=== PATIENT | male | born 1945 | race Caucasian/White ===

== ENCOUNTER 2016-12-19 16:37 | Inpatient (IN) | payer MEDICARE, MEDICAID ==
[~2016-12-19] VITALS: Ht 170.2 cm; Wt 73.1 kg
[2016-12-19 19:55] VITALS: BP 121/73
[2016-12-19] MEDS ORDERED: ZOLPIDEM TARTRATE 10 MG TABLET PO PRN (20:00)
[2016-12-19] MEDS ORDERED: HALOPERIDOL 5 MG TABLET PO PRN (20:00)
[2016-12-19] MEDS ORDERED: LORazepam 2 MG TABLET PO PRN (20:00)
[2016-12-19] MEDS ORDERED: ESCI10TA PO (20:01)
[2016-12-19] MEDS ORDERED: DONE10TA PO (20:03)
[2016-12-19] MEDS ORDERED: MEMA10TA11 PO (20:03)
[2016-12-19] MEDS ORDERED: MIRT15 PO (20:05)
[2016-12-19] MEDS ORDERED: TAMS0.4C32 PO ×2 (20:06→20:20)
[2016-12-19] MEDS ORDERED: ATOR20TA86 PO (20:08)
[2016-12-19] MEDS ORDERED: AMLO-512 PO (20:11)
[2016-12-19] MEDS ORDERED: HYDR25TA PO (20:14)
[2016-12-19] MEDS ORDERED: ASPI81TA2 PO (20:15)
[2016-12-19] MEDS ORDERED: GLIM4 PO (20:18)
[2016-12-19] MEDS ORDERED: METF500T4 PO (20:19)
[2016-12-19] MEDS: MEMANTINE HCL 10 MG TABLET PO SCH (20:50)
[2016-12-19] MEDS ORDERED: PNEUMOCOCCAL VACCINE POLYVALENT 0.5 ML VIAL [PPSV23] IM ONE (21:30)
[2016-12-19 21:50] VITALS: BP 125/69
[2016-12-19] MEDS: MIRTAZAPINE 15 MG TABLET PO SCH (22:39)
[2016-12-19 23:07] LABS: GLUCOSE COMMENT 1 Repeated; GLUCOSE,POINT OF CARE 60 MG/DL (70-110)
[2016-12-19 23:07] LABS: GLUCOSE COMMENT 1 Doctor Notified; GLUCOSE,POINT OF CARE 80 MG/DL (70-110)
[2016-12-19 23:07] LABS: GLUCOSE COMMENT 1 Juice/Food/D50 Given; GLUCOSE,POINT OF CARE 63 MG/DL (70-110)
[2016-12-19] MEDS ORDERED: GLUCAGON,HUMAN RECOMBINANT 1 MG VIAL IM PRN (23:30)
[2016-12-20 00:03] VITALS: BP 123/67
[2016-12-20 07:09] LABS: GLUCOSE,POINT OF CARE 132 MG/DL (70-110)
[2016-12-20] MEDS: GLIMEPIRIDE 4 MG TABLET PO SCH ×2 (07:37→16:52)
[2016-12-20 08:05] LABS: BASOPHILS % (AUTO) 0.7 % (0.0-2.0); EOSINOPHILS % (AUTO) 6.4 % (1.0-6.0); HEMATOCRIT 35.2 % (41-53); HEMOGLOBIN 11.6 g/dL (13.5-17.5); LYMPHOCYTES # (AUTO) 1.9 K/uL (1.0-4.8); LYMPHOCYTES % (AUTO) 25.2 % (22.0-44.0); MEAN CORPUSCULAR HEMOGLOBIN 30.5 pg (26.0-34.0); MEAN CORPUSCULAR HGB CONC 32.8 G/dL (31.0-37.0); MEAN CORPUSCULAR VOLUME 93 fL (80-100); MONOCYTES # (AUTO) 0.8 K/uL (0.1-1.0); MONOCYTES % (AUTO) 10.9 % (2.0-9.0); NEUTROPHILS # (AUTO) 4.3 K/uL (1.8-7.7); NEUTROPHILS % (AUTO) 56.8 % (40.0-70.0); PLATELET COUNT (AUTO) 261 K/uL (150-450); RED BLOOD CELL COUNT(AUTO) 3.78 MIL/uL (4.50-5.90); RED CELL DISTRIBUTION WIDTH 14.7 % (11.5-14.5); WHITE BLOOD COUNT (AUTO) 7.6 K/uL (4.5-11.0)
[2016-12-20 08:10] VITALS: BP 138/60
[2016-12-20] MEDS: HYDROCHLOROTHIAZIDE 25 MG TABLET PO SCH (08:21)
[2016-12-20] MEDS: MEMANTINE HCL 10 MG TABLET PO SCH ×2 (08:21→16:53)
[2016-12-20] MEDS: ESCITALOPRAM OXALATE 10 MG TABLET PO SCH (08:21)
[2016-12-20] MEDS: AmLODIPine BESYLATE 10 MG TABLET PO SCH (08:21)
[2016-12-20] MEDS: DONEPEZIL HCL 10 MG TABLET PO SCH (08:21)
[2016-12-20] MEDS: ASPIRIN 81 MG CHEWABLE TABLET PO SCH (08:26)
[2016-12-20 08:56] LABS: ALANINE AMINOTRANSFERASE 20 U/L (12-78); ALBUMIN 3.1 g/dL (3.4-5.0); ANION GAP 8 mmol/L (8-16); ASPARTATE AMINOTRANSFERASE 12 U/L (15-37); BILIRUBIN,TOTAL 0.4 mg/dL (0.1-1.0); CALCIUM, TOTAL 8.8 mg/dL (8.8-10.5); CARBON DIOXIDE 29 mmol/L (22-29); CHLORIDE 105 mmol/L (98-107); CHOL/HDL RATIO 2.8 (4.2-7.3); CREATININE 0.88 mg/dL (0.60-1.30); GLOMERULAR FILTR. RATE CALC > 60 mL/min (>60); POTASSIUM 4.5 mmol/L (3.5-5.1); SODIUM SERUM 142 mmol/L (136-145); THYROID STIMULATING HORMONE 3.07 uIU/mL (0.36-3.74); TOTAL PROTEIN, SERUM 6.6 g/dL (6.4-8.2); UREA NITROGEN, BLOOD 15 mg/dL (7-18)
[2016-12-20 11:43] LABS: GLUCOSE COMMENT 1 Received Meds; GLUCOSE,POINT OF CARE 179 MG/DL (70-110)
[2016-12-20 16:16] VITALS: BP 117/67
[2016-12-20 16:22] LABS: GLUCOSE,POINT OF CARE 178 MG/DL (70-110)
[2016-12-20] MEDS ORDERED: DEXTROSE 50%-WATER 25 GM/50 ML SYRINGE IVP PRN (17:30)
[2016-12-20] MEDS ORDERED: INSULIN REGULAR, HUMAN 100 UNITS/ML SQ PRN (17:30)
[2016-12-20] MEDS: INSULIN ASPART 100 UNITS/ML SQ PRN ×2 (17:51→20:43)
[2016-12-20 20:12] LABS: GLUCOSE COMMENT 1 Received Meds; GLUCOSE,POINT OF CARE 189 MG/DL (70-110)
[2016-12-20] MEDS: MIRTAZAPINE 15 MG TABLET PO SCH (20:42)
[2016-12-20] MEDS: TAMSULOSIN HCL 0.4 MG CAPSULE PO SCH (20:42)
[2016-12-20] MEDS: ATORVASTATIN CALCIUM 20 MG TABLET PO SCH (20:42)
[2016-12-20 22:20] VITALS: BP 143/79
[2016-12-20] MEDS ORDERED: DEXTROSE 50%-WATER 25 GM/50 ML SYG IVP PRN (22:30)
[2016-12-21 05:46] LABS: GLUCOSE,POINT OF CARE 115 MG/DL (70-110)
[2016-12-21] MEDS: FERROUS SULFATE 325 MG EC TABLET PO SCH ×3 (07:09→16:30)
[2016-12-21] MEDS: GLIMEPIRIDE 4 MG TABLET PO SCH ×2 (07:11→16:30)
[2016-12-21] MEDS: AmLODIPine BESYLATE 10 MG TABLET PO SCH (08:36)
[2016-12-21] MEDS: MEMANTINE HCL 10 MG TABLET PO SCH ×2 (08:37→16:28)
[2016-12-21] MEDS: ASPIRIN 81 MG CHEWABLE TABLET PO SCH (08:37)
[2016-12-21] MEDS: QUEtiapine FUMARATE 25 MG TABLET PO SCH ×2 (08:37→16:28)
[2016-12-21] MEDS: FOLIC ACID 1 MG TABLET PO SCH (08:37)
[2016-12-21] MEDS: DONEPEZIL HCL 10 MG TABLET PO SCH (08:38)
[2016-12-21] MEDS: HYDROCHLOROTHIAZIDE 25 MG TABLET PO SCH (08:38)
[2016-12-21] MEDS: ESCITALOPRAM OXALATE 10 MG TABLET PO SCH (08:39)
[2016-12-21 10:40] VITALS: BP 136/84
[2016-12-21] MEDS: INSULIN ASPART 100 UNITS/ML SQ PRN ×2 (11:07→20:51)
[2016-12-21 11:18] LABS: GLUCOSE,POINT OF CARE 156 MG/DL (70-110)
[2016-12-21 17:00] VITALS: BP 105/68
[2016-12-21 17:12] LABS: GLUCOSE,POINT OF CARE 135 MG/DL (70-110)
[2016-12-21] MEDS: MIRTAZAPINE 15 MG TABLET PO SCH (20:29)
[2016-12-21] MEDS: TAMSULOSIN HCL 0.4 MG CAPSULE PO SCH (20:29)
[2016-12-21] MEDS: ATORVASTATIN CALCIUM 20 MG TABLET PO SCH (20:29)
[2016-12-22 05:45] LABS: GLUCOSE,POINT OF CARE 132 MG/DL (70-110)
[2016-12-22 06:14] VITALS: BP 146/90
[2016-12-22] MEDS: FERROUS SULFATE 325 MG EC TABLET PO SCH ×3 (07:15→16:06)
[2016-12-22] MEDS: GLIMEPIRIDE 4 MG TABLET PO SCH ×2 (07:15→16:06)
[2016-12-22 07:38] LABS: GLUCOSE,POINT OF CARE 191 MG/DL (70-110)
[2016-12-22] MEDS: MEMANTINE HCL 10 MG TABLET PO SCH ×2 (08:59→16:06)
[2016-12-22] MEDS: ASPIRIN 81 MG CHEWABLE TABLET PO SCH (08:59)
[2016-12-22] MEDS: QUEtiapine FUMARATE 25 MG TABLET PO SCH ×2 (08:59→16:06)
[2016-12-22] MEDS: BACITRACIN 28.4 GM OINTMENT TP SCH ×2 (08:59→16:06)
[2016-12-22] MEDS: ESCITALOPRAM OXALATE 10 MG TABLET PO SCH (08:59)
[2016-12-22] MEDS: HYDROCHLOROTHIAZIDE 25 MG TABLET PO SCH (08:59)
[2016-12-22] MEDS: FOLIC ACID 1 MG TABLET PO SCH (08:59)
[2016-12-22] MEDS: DONEPEZIL HCL 10 MG TABLET PO SCH (08:59)
[2016-12-22] MEDS: AmLODIPine BESYLATE 10 MG TABLET PO SCH (08:59)
[2016-12-22] MEDS: INSULIN ASPART 100 UNITS/ML SQ PRN ×2 (11:45→21:02)
[2016-12-22 11:59] LABS: GLUCOSE,POINT OF CARE 186 MG/DL (70-110)
[2016-12-22 12:38] VITALS: BP 138/79
[2016-12-22 16:56] VITALS: BP 95/59
[2016-12-22 17:32] LABS: GLUCOSE,POINT OF CARE 109 MG/DL (70-110)
[2016-12-22 20:46] LABS: GLUCOSE COMMENT 1 Received Meds; GLUCOSE,POINT OF CARE 205 MG/DL (70-110)
[2016-12-22] MEDS: ATORVASTATIN CALCIUM 20 MG TABLET PO SCH (21:08)
[2016-12-22] MEDS: TAMSULOSIN HCL 0.4 MG CAPSULE PO SCH (21:09)
[2016-12-22] MEDS: MIRTAZAPINE 15 MG TABLET PO SCH (21:09)
[2016-12-23] MEDS: GLIMEPIRIDE 4 MG TABLET PO SCH ×2 (06:57→17:28)
[2016-12-23] MEDS: FERROUS SULFATE 325 MG EC TABLET PO SCH ×3 (06:57→17:28)
[2016-12-23 07:04] VITALS: BP 143/85
[2016-12-23 07:04] LABS: GLUCOSE,POINT OF CARE 115 MG/DL (70-110)
[2016-12-23] MEDS: QUEtiapine FUMARATE 25 MG TABLET PO SCH ×2 (08:21→17:28)
[2016-12-23] MEDS: ESCITALOPRAM OXALATE 10 MG TABLET PO SCH (08:24)
[2016-12-23] MEDS: AmLODIPine BESYLATE 10 MG TABLET PO SCH (08:24)
[2016-12-23] MEDS: DONEPEZIL HCL 10 MG TABLET PO SCH (08:24)
[2016-12-23] MEDS: FOLIC ACID 1 MG TABLET PO SCH (08:25)
[2016-12-23] MEDS: ASPIRIN 81 MG CHEWABLE TABLET PO SCH (08:25)
[2016-12-23] MEDS: HYDROCHLOROTHIAZIDE 25 MG TABLET PO SCH (08:25)
[2016-12-23] MEDS: MEMANTINE HCL 10 MG TABLET PO SCH ×2 (08:25→17:28)
[2016-12-23] MEDS: BACITRACIN 28.4 GM OINTMENT TP SCH ×2 (08:31→17:29)
[2016-12-23 08:53] VITALS: BP 132/81
[2016-12-23 13:48] LABS: GLUCOSE,POINT OF CARE 136 MG/DL (70-110)
[2016-12-23 16:40] VITALS: BP 101/61
[2016-12-23 16:57] LABS: GLUCOSE,POINT OF CARE 153 MG/DL (70-110)
[2016-12-23] MEDS: INSULIN ASPART 100 UNITS/ML SQ PRN ×2 (17:00→21:08)
[2016-12-23] MEDS: TAMSULOSIN HCL 0.4 MG CAPSULE PO SCH (20:48)
[2016-12-23] MEDS: ATORVASTATIN CALCIUM 20 MG TABLET PO SCH (20:49)
[2016-12-23] MEDS: MIRTAZAPINE 15 MG TABLET PO SCH (20:49)
[2016-12-23 20:57] LABS: GLUCOSE,POINT OF CARE 213 MG/DL (70-110)
[2016-12-24 05:27] LABS: GLUCOSE,POINT OF CARE 85 MG/DL (70-110)
[2016-12-24] MEDS: GLIMEPIRIDE 4 MG TABLET PO SCH ×2 (06:33→16:52)
[2016-12-24] MEDS: FERROUS SULFATE 325 MG EC TABLET PO SCH ×3 (06:33→16:52)
[2016-12-24 07:18] VITALS: BP 114/78
[2016-12-24 08:02] VITALS: BP 143/77
[2016-12-24] MEDS: MEMANTINE HCL 10 MG TABLET PO SCH ×2 (08:59→16:52)
[2016-12-24] MEDS: HYDROCHLOROTHIAZIDE 25 MG TABLET PO SCH (08:59)
[2016-12-24] MEDS: QUEtiapine FUMARATE 25 MG TABLET PO SCH ×2 (08:59→16:52)
[2016-12-24] MEDS: ESCITALOPRAM OXALATE 10 MG TABLET PO SCH (09:00)
[2016-12-24] MEDS: ASPIRIN 81 MG CHEWABLE TABLET PO SCH (09:00)
[2016-12-24] MEDS: DONEPEZIL HCL 10 MG TABLET PO SCH (09:00)
[2016-12-24] MEDS: AmLODIPine BESYLATE 10 MG TABLET PO SCH (09:00)
[2016-12-24] MEDS: BACITRACIN 28.4 GM OINTMENT TP SCH ×2 (09:00→16:51)
[2016-12-24] MEDS: FOLIC ACID 1 MG TABLET PO SCH (09:00)
[2016-12-24 11:26] LABS: GLUCOSE,POINT OF CARE 154 MG/DL (70-110)
[2016-12-24] MEDS: INSULIN ASPART 100 UNITS/ML SQ PRN ×3 (11:31→20:30)
[2016-12-24 17:00] VITALS: BP 115/65
[2016-12-24 17:37] LABS: GLUCOSE,POINT OF CARE 118 MG/DL (70-110)
[2016-12-24] MEDS: TAMSULOSIN HCL 0.4 MG CAPSULE PO SCH (20:08)
[2016-12-24] MEDS: MIRTAZAPINE 15 MG TABLET PO SCH (20:08)
[2016-12-24] MEDS: ATORVASTATIN CALCIUM 20 MG TABLET PO SCH (20:08)
[2016-12-24 20:57] LABS: GLUCOSE COMMENT 1 Received Meds; GLUCOSE,POINT OF CARE 245 MG/DL (70-110)
[2016-12-25 05:42] LABS: GLUCOSE,POINT OF CARE 95 MG/DL (70-110)
[2016-12-25] MEDS: GLIMEPIRIDE 4 MG TABLET PO SCH ×2 (06:34→16:40)
[2016-12-25] MEDS: FERROUS SULFATE 325 MG EC TABLET PO SCH ×3 (06:35→16:59)
[2016-12-25 08:00] VITALS: BP 107/56
[2016-12-25] MEDS: HYDROCHLOROTHIAZIDE 25 MG TABLET PO SCH (08:25)
[2016-12-25] MEDS: QUEtiapine FUMARATE 25 MG TABLET PO SCH ×2 (08:25→16:40)
[2016-12-25] MEDS: FOLIC ACID 1 MG TABLET PO SCH (08:25)
[2016-12-25] MEDS: ASPIRIN 81 MG CHEWABLE TABLET PO SCH (08:25)
[2016-12-25] MEDS: MEMANTINE HCL 10 MG TABLET PO SCH ×2 (08:25→16:40)
[2016-12-25] MEDS: DONEPEZIL HCL 10 MG TABLET PO SCH (08:25)
[2016-12-25] MEDS: ESCITALOPRAM OXALATE 10 MG TABLET PO SCH (08:25)
[2016-12-25] MEDS: AmLODIPine BESYLATE 10 MG TABLET PO SCH (08:26)
[2016-12-25] MEDS: BACITRACIN 28.4 GM OINTMENT TP SCH ×2 (10:02→16:40)
[2016-12-25 11:07] LABS: GLUCOSE,POINT OF CARE 146 MG/DL (70-110)
[2016-12-25] MEDS: INSULIN ASPART 100 UNITS/ML SQ PRN ×2 (11:09→21:01)
[2016-12-25 16:48] VITALS: BP 132/70
[2016-12-25 17:12] LABS: GLUCOSE,POINT OF CARE 135 MG/DL (70-110)
[2016-12-25] MEDS: TAMSULOSIN HCL 0.4 MG CAPSULE PO SCH (20:47)
[2016-12-25] MEDS: ATORVASTATIN CALCIUM 20 MG TABLET PO SCH (20:48)
[2016-12-25] MEDS: MIRTAZAPINE 15 MG TABLET PO SCH (20:48)
[2016-12-25 22:46] LABS: GLUCOSE COMMENT 1 Received Meds; GLUCOSE,POINT OF CARE 198 MG/DL (70-110)
[2016-12-26 05:32] LABS: GLUCOSE,POINT OF CARE 92 MG/DL (70-110)
[2016-12-26 06:27] VITALS: BP 149/88
[2016-12-26] MEDS: FERROUS SULFATE 325 MG EC TABLET PO SCH ×2 (06:40→17:18)
[2016-12-26] MEDS: GLIMEPIRIDE 4 MG TABLET PO SCH (06:40)
[2016-12-26 08:02] VITALS: BP 121/83
[2016-12-26] MEDS: MEMANTINE HCL 10 MG TABLET PO SCH ×2 (09:16→17:06)
[2016-12-26] MEDS: ASPIRIN 81 MG CHEWABLE TABLET PO SCH (09:17)
[2016-12-26] MEDS: FOLIC ACID 1 MG TABLET PO SCH (09:17)
[2016-12-26] MEDS: HYDROCHLOROTHIAZIDE 25 MG TABLET PO SCH (09:17)
[2016-12-26] MEDS: ESCITALOPRAM OXALATE 10 MG TABLET PO SCH (09:17)
[2016-12-26] MEDS: QUEtiapine FUMARATE 25 MG TABLET PO SCH ×2 (09:18→17:06)
[2016-12-26] MEDS: DONEPEZIL HCL 10 MG TABLET PO SCH (09:18)
[2016-12-26] MEDS: AmLODIPine BESYLATE 10 MG TABLET PO SCH (09:18)
[2016-12-26] MEDS: INSULIN ASPART 100 UNITS/ML SQ PRN (11:41)
[2016-12-26 11:52] LABS: GLUCOSE,POINT OF CARE 170 MG/DL (70-110)
[2016-12-26] MEDS ORDERED: QUET25TA PO (12:10)
[2016-12-26] MEDS ORDERED: FOLI1 PO (12:10)
[2016-12-26] MEDS ORDERED: FERS325 PO (12:11)
[2016-12-26 16:36] VITALS: BP 113/68
[2016-12-26 17:12] LABS: GLUCOSE,POINT OF CARE 105 MG/DL (70-110)
== END 2016-12-26 18:00 | disposition home or self-care (01) | DRG 884 ==
LOC: B2X 20:21 → 3EX 12-20 21:26
PROVIDERS: ADMIT Psychiatry & Neurology Psychiatry; ATTEND Psychiatry & Neurology Psychiatry
DX: F03.91 Unspecified dementia, unspecified severity, with behavioral disturbance (principal); E78.5 Hyperlipidemia, unspecified; I10 Essential (primary) hypertension; E11.9 Type 2 diabetes mellitus without complications; N40.0 Benign prostatic hyperplasia without lower urinary tract symptoms; F25.9 Schizoaffective disorder, unspecified; F32.9 Major depressive disorder, single episode, unspecified; Z28.21 Immunization not carried out because of patient refusal
CPT/HCPCS: 82962; 84436; 84439; 84443; 90471